=== PATIENT | male | born 1955 | race Caucasian/White ===

== ENCOUNTER 2023-12-25 22:02 | Emergency (ER) | payer MEDICARE, OTHER, SELFPAY ==
[2023-12-25 22:06] VITALS: BP 160/98; PULSE 88; RESP 16; TEMP 36.1; O2SAT 100; BMI 32.3
--- NOTE | 2023-12-25 23:31 | ED_ITS ---
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 He was carrying a duffle type bag with the shoulder strap hanging down when it became entangled in his step, causing him to fall forward. He was able to catch himself with his hands since he was holding onto the bag and struck his head on the asphalt. There was no loss of consciousness, seizure. Bystanders attended to him immediately and were able to help him up. No confusion or unusual symptoms after the fall. He does not take any anticoagulants. He does admit to 2 alcoholic beverages tonight but does not believe that was a factor in his fall. His accompanies him and was at the event and denies strange behavior. No prior history of seizure disorder, has been eating and drinking normally, no fevers or recent signs of illness. Denies any neck pain or neurological changes. He has some bleeding from a laceration on his left brow bone area, no other complaints today. No other areas of pain. Has not taken any Tylenol or ibuprofen to help with symptoms. Past medical history per his report benign, no major long-term health problems. No prescription medications, no allergies. Nonsmoker. Rare social alcohol. ROS notable for the laceration on the left forehead, otherwise denies times 12 systems. Related Data Allergies Allergy/AdvReac Type Severity Reaction Status Date / Time No Known Drug Allergies Allergy Verified 12/25/23 22:13 Exam Const: Vital Signs, click to edit/add: Vital Signs - 24 hr 12/25/23 22:06 Temperature 97.0 F L Pulse Rate [Right Pulse Oximeter] 88 Respiratory Rate 16 Blood Pressure [Ri ght Upper Arm] 160/98 H Pulse Oximetry 100 Oxygen Delivery Me thod Room Air Documenting provider has reviewed patient's vital signs: yes Common normals: no apparent distress General appearance: well kempt Orientation/consciousness: Yes awake Other: Appears well-nourished, well-hydrated, not intoxicated. Answers questions appropriately. HENMT: Other: 4 cm x 3 cm hematoma on his left brow horacio ne, just above the eye socket, lateral left. Extraocular movements are normal. No signs of entrapment. No pulsatile bleeding noted from the center of the hematoma. There is a 2 cm long open area with abrasion above and below the laceration area, along the hematoma. Eye: Common normals: PERRL, EOMs intact bilaterally and conjunctivae normal Conjunctiva: conjunctiva(e) normal Pupil: PERRL Other: Slight swelling of left upper eyelid and along brown bone but normal extraocular movements. Neck & C-Spine: Common normals: full ROM and no lymphadenopathy General: normal visual inspection Cervical spine: cervical ROM normal; no pain with cervical ROM and no cervical spine tenderness Resp: Common normals: normal respiratory effort, no use of accessory muscles and clear to auscultation bilaterally Effort & inspection: able to speak in complete sentences Auscultation: clear to auscultation bilaterally Cardio: Common normals: regular rate, regular rhythm, S1 normal heart sound, S2 normal heart sound and no murmurs Rate: regular rate Rhythm: regular rhythm Heart sounds: S1 normal and S2 normal Extremity: Common normals: normal to inspection, normal capillary refill and no joint enlargement Neuro: Common normals: CN's II-XII intact bilaterally, moves all extremities and no focal motor deficits Sensorium/orientation: awake Speech: speech normal Gait (neuro): normal gait Motor exam: strength 5/5 throughout and no movement abnormalities noted Psych: Common normals: thought process normal Appearance: well kempt Attitude: engaged Activity/motor behavior: appropriate eye contact Thought process: normal thought process Insight: insight good Judgement: judgment good Skin: Narrative: Other than the abrasion on the head, no other abnormalities to the extremities, torso. Course Course ED Course: Hematoma to left brow bone. Does not appear to be any evidence of skull fracture or arterial injury. Area was cleansed with soapy tap water, sukhdev henson. Discussed options for laceration repair, recommended Steri-Strips. Repair: After cleansing, no foreign body identified. Steri-Strips and benzoin were applied to reapproximate the edges of the wound, encompassing the hematoma. Pinpoint area of Dermabond used on lower abrasion to maintain hemostasis. Reexamined 45 minutes later, no further expansion of the hematoma was noted. Lesion hemostatic. Care of the Steri-Strips discussed. Alarm symptoms of concussion and head injury were reviewed. Patient likely to have symptoms of mild dizziness, headache, fatigue. True alarm symptoms reviewed that would warrant ED presentation. He verbalized understanding and agreement. Will give 600 of ibuprofen for headache prevention. Not currently reporting any neurological changes at this time. Will be discharged with spouse, written instructions provided. Reevaluation(s) Time of Reevaluation #1: 23:31 Reevaluation #1: Re-evaluated hematoma on left brow bone. Has not expanded in the last 45 minutes. No further bleeding noted. Patient counseled on signs symptoms of head injury, concussion management. Will give ibuprofen 6 are mg p.o. x1 to help prevent headache. He asks appropriate questions and these are all answered. Counseled on signs and symptoms that would warrant repeat ED presentation. Rest for the next 48 hours. He verbalized understanding and agreement. Please see discharge instructions. Vital Signs Vital signs: Initial Vital Signs Temperature 97.0 F L 12/25/23 22:06 Temperature Source Temporal Artery Scan 12/25/23 22:06 Pulse Rate 88 12/25/23 22:06 Pulse Rhythm Regular 12/25/23 22:06 Respiratory Rate 16 12/25/23 22:06 Blood Pressure 160/98 H 12/25/23 22:06 Blood Pressure Mean 118 H 12/25/23 22:06 Blood Pressure Position Sitting 12/25/23 22:06 Pulse Oximetry 100 12/25/23 22:06 Oxygen Delivery Method Room Air 12/25/23 22:06 Vital Signs Temperature 97.0 F L 12/25/23 22:06 Pulse Rate 88 12/25/23 22:06 Respiratory Rate 16 12/25/23 22:06 Blood Pressure 160/98 H 12/25/23 22:06 Pulse Oximetry 100 12/25/23 22:06 Oxygen Delivery Method Room Air 12/25/23 22:06 Temperature 97.0 F L 12/25/23 22:06 Pulse Rate 88 12/25/23 22:06 Respiratory Rate 16 12/25/23 22:06 Blood Pressure 160/98 H 12/25/23 22:06 Pulse Oximetry 100 12/25/23 22:06 Oxygen Delivery Method Room Air 12/25/23 22:06 Medications Administered Medications: Discontinued Medications Generic Name Dose Route Start Last Admin Trade Name Freq PRN Reason Stop Dose Admin Ibuprofen 600 mg 12/25/23 23:28 12/25/23 23:46 Ibuprofen 200 Mg Tablet PO 12/25/23 23:29 600 mg ONCE ONE Administration Discharge Plan Discharge Clinical Impression: Facial laceration, Facial hematoma, Head injury Patient Disposition: Home w/ Parent or Adult Condition: Improved Instructions: Head Injury (DC), Steristrips (ED) Additional Instructions: As we discussed, you have a hematoma which is a blood collection underneath the skin on your left brow bone. It seems stable, not continuing to expand over the hour that we observed things in the emergency room. I do not see any signs of severe fracture or entrapment of the eye muscles. The swelling is going to continue down the eyelid and is also going to cause bruising underneath the eye and down the face. Unfortunately, this is unavoidable. You also have an abrasion which has some glue over the top and then I closed the laceration with Steri-Strips. The Steri-Strips and glue will flake off on their own in about a week or so. Please do not peel them off for try to help them in any way. You do not need to apply antibiotic ointment or any other topical treatment. Please let the Steri-Strips try for a couple more hours and then you may gently cleanse around the area but please do not aggressively scrubbed over the wound for at least the next 4 days. A little bit of blood oozing may be unavoidable. If this happens, apply pressure with a dry cloth for 20 minutes and recheck. If you cannot get the bleeding stopped, please come back to the emergency room. You are likely to have symptoms of head injury and concussion. This will likely include dizziness, headache, feeling foggy and fatigue for the next 2-3 days. It is important that you rest for the next 24-48 hours to reduce your symptoms. It is okay to use Tylenol 1000 mg every 6 hours and or ibuprofen 600 mg every 6 hours as needed to help with symptoms. If you have persistent vomiting, stroke- like symptoms, seizures, loss of consciousness, please come back to the emergency department or call 911 if needed. Activity Level: No strenuous activity Discharge Diet: Regular Follow Up/Referrals: Galindo Ngo MD [Primary Care Provider] - Stand Alone Forms: Mei[facility] Info Instructions
[2023-12-25] MEDS: IBUPROFEN 200 MG TABLET 600 MG PO (23:46)
== END 2023-12-25 23:48 | disposition home or self-care (01) ==
PROVIDERS: Emergency Provider Family Medicine; PCP Family Medicine
DX: S01.112A Laceration without foreign body of left eyelid and periocular area, initial encounter (principal); W01.0XXA Fall on same level from slipping, tripping and stumbling without subsequent striking against object, initial encounter
CPT/HCPCS: 12011; 99283; A9270